=== PATIENT | female | born 2000 | race Two or more races ===

== ENCOUNTER 2024-05-17 12:36 | Emergency (ER) | payer MEDICAID, OTHER ==
[~2024-05-17] VITALS: Ht 162.6 cm; Wt 92.2 kg
[2024-05-17 13:27] VITALS: BP 129/93; PULSE 93; RESP 16; TEMP 98.6; O2SAT 95
[2024-05-17] MEDS ORDERED: AUG875T PO (14:12)
[2024-05-17] MEDS ORDERED: CIPR1SUS8 OT (14:12)
== END 2024-05-17 14:17 | disposition home or self-care (01) ==
LOC: ER 12:47
DX: H60.92 Unspecified otitis externa, left ear (principal); Z79.899 Other long term (current) drug therapy